=== PATIENT | male | born 1960 | race Caucasian/White ===

== ENCOUNTER 2019-03-25 09:13 | Emergency (ER) | payer BC ==
[2019-03-25 09:20] VITALS: BP 128/67
--- NOTE | 2019-03-25 09:41 | UC ---
Abdominal Pain Male HPI - HPI Summary HPI Summary: reports: diarrhea, malaise, abdominal cramps, bloating, and nausea . he thinks it was either from a bird bath he was cleaning a week ago vs. goose feces he touched. is not around children and denies working with food. Urinating normally. denies blood in stool, joint swelling/pain, rash. - History of Current Complaint Chief Complaint: UCAbdominalPain Stated Complaint: CHURNING GASSY CRAMPS Time Seen by Provider: 03/25/19 09:35 Hx Obtained From: Patient Pain Intensity: 5 Pain Scale Used: 0-10 Numeric Location: Diffuse Radiates: No Character: Colicy, Cramping Aggravating Factor(s): Food Alleviating Factor(s): Nothing Associated Signs And Symptoms: Positive: Decreased Appetite, Nausea. Negative: Fever, Blood in Stool, Urinary Symptoms - Allergies/Home Medications Allergies/Adverse Reactions: Allergies Allergy/AdvReac Type Severity Reaction Status Date / Time No Known Allergies Allergy Verified 03/25/19 09:20 PMH/Surg Hx/FS Hx/Imm Hx Previously Healthy: Yes Cardiovascular History: Hypertension Respiratory History: Asthma - Surgical History Surgical History: Yes Surgery Procedure, Year, and Place: patella tendon repair 1995 - Family History Known Family History: Positive: Non-Contributory - Social History Alcohol Use: Occasionally Alcohol Amount: 1/day may do up to 4 on Saturdays Substance Use Type: None Smoking Status (MU): Never Smoked Tobacco Have You Smoked in the Last Year: No Review of Systems All Other Systems Reviewed And Are Negative: Yes Constitutional: Positive: Fatigue, Other - malaise. Negative: Fever, Chills Skin: Negative: Rash Gastrointestinal: Positive: Diarrhea - watery w/ cramps., Nausea, Other - abd aching,cramping. Negative: Vomiting Genitourinary: Positive: Negative - denies decr. urination. Negative: Hematuria Musculoskeletal: Negative: Arthralgia, Edema, Myalgia Neurological: Negative: Headache, Weakness Physical Exam Triage Information Reviewed: Yes Appearance: Well-Appearing Vital Signs: Initial Vital Signs Temp 98 F 03/25/19 09:14 Pulse 58 03/25/19 09:14 Resp 16 03/25/19 09:14 BP 128/67 03/25/19 09:14 Pulse Ox 99 03/25/19 09:14 Neck: Positive: Supple Respiratory Exam: Normal Cardiovascular Exam: Normal Abdomen Description: Positive: Nontender, Soft. Negative: CVA Tenderness (R), CVA Tenderness (L), Distended, Guarding, Pulsatile Mass Bowel Sounds: Positive: Hyperactive Neurological: Positive: Alert Skin: Negative: Rashes Abd Pain Male Course/Dx - Course Course Of Treatment: Wateray diarrhea, acute, intermittent. Exam unremarkable. Suspect infectious source and will tx emprically w/ one time dose for its long half life and ease. Will await stool kit results. Vitals are good. No contact w/ women or children. Discussed ways to incr. electrolyte balance, fluids, bowel rest. he knows to do stool kit first then take tx. - Differential Dx/Clinical Impression Differential Diagnosis/HQI/PQRI: Peptic Ulcer Disease, Urinary Tract Infection Provider Diagnosis: Watery diarrhea Discharge - Sign-Out/Discharge Documenting (check all that apply): Patient Departure All imaging exams completed and their final reports reviewed: No Studies - Discharge Plan Condition: Good Disposition: HOME Prescriptions: Tinidazole 500 mg PO ONCE 1 Days #8 tablet Patient Education Materials: Giardiasis (ED) Referrals: Kia Wood MD [Primary Care Provider] - Additional Instructions: If no improvement please follow up with your primary care. For now we are treating you for presumed Giardia. The medication is a one time dose. Please perform the stool test first. - Billing Disposition and Condition Condition: GOOD Disposition: Home
--- NOTE | 2019-03-27 10:03 | UC ---
- Progress Note Progress Note: PLEASE CALL PATIENT AND ADVISE THAT STOOL STUDIES POSITIVE FOR GIARDIA. HE WAS TREATED APPROPRIATELY WITH TINIDAZOLE. PLEASE ENSURE HE TOOK HIS ONE TIME DOSE. FOLLOW-UP WITH PCP. Course/Dx - Diagnoses Provider Diagnoses: Watery diarrhea Discharge - Sign-Out/Discharge Documenting (check all that apply): Post-Discharge Follow Up All imaging exams completed and their final reports reviewed: No Studies - Discharge Plan Condition: Good Disposition: HOME Prescriptions: Tinidazole 500 mg PO ONCE 1 Days #8 tablet Patient Education Materials: Giardiasis (ED) Referrals: Kia Wood MD [Primary Care Provider] - Additional Instructions: If no improvement please follow up with your primary care. For now we are treating you for presumed Giardia. The medication is a one time dose. Please perform the stool test first. - Billing Disposition and Condition Condition: GOOD Disposition: Home
== END 2019-03-25 10:41 | disposition home or self-care (01) ==
LOC: UCEAST 09:13
DX: R19.7 Diarrhea, unspecified (principal); I10 Essential (primary) hypertension; J45.909 Unspecified asthma, uncomplicated
CPT/HCPCS: 83630; 87045; 87046; 87077; 87328; 87329; 87493; 87899; 99212; G0463